=== PATIENT | male | born 1955 | race Caucasian/White ===

== ENCOUNTER 2017-07-03 19:21 | Emergency (ER) | payer OTHER ==
[2017-07-03] MEDS ORDERED: NS 1,000 ML IV ONE ×2 (19:48→20:19)
[2017-07-03] MEDS ORDERED: ONDANSETRON 4 MG/2 ML VIAL IVP ONE (19:48)
--- NOTE | 2017-07-03 19:51 | EDPHY ---
H & P Smoking Status: Never smoked Time Seen by Provider: 07/03/17 19:41 HPI/ROS: CHIEF COMPLAINT: Nausea vomiting diarrhea HISTORY OF PRESENT ILLNESS: Symptoms started 2 days ago. Multiple episodes of diarrhea which started 1st followed by at least 2 episodes of vomiting. Today still has nausea and inability to eat anything and some diarrhea with some crampy abdominal pain which radiates to his mid back. It was a little bit better with Advil but now it is still present. Pain is between his epigastrium and his umbilicus. Has had some previous abdominal surgery including umbilical hernia repair and appendectomy. He does drink daily alcohol. Symptoms moderate , currently feels dehydrated, symptoms worse with oral intake. No recent antibiotics or foreign travel. REVIEW OF SYSTEMS: Eye: no change in vision ENT: no sore throat Cardiac: no chest pain or syncope Pulmonary: no cough or SOB Abdomen: HPI Musculoskeletal: Radiates to the midback Skin: no rash Neuro: no headache Constitutional: no fever : no urinary symptoms A comprehensive 10 point review of systems is otherwise negative aside from elements mentioned in the history of present illness. PAST MEDICAL HISTORY: Includes mitral valve regurgitation, asthma, hypercholesterolemia, umbilical hernia repair, appendectomy. Social history: daily alcohol, General Appearance: Alert and conversant, cooperative. Eyes: No scleral icterus. ENT, Mouth: Dry mucous membranes Respiratory: Normal respiratory effort, breath sounds equal, lungs are clear to auscultation. Cardiovascular: Regular rate and rhythm. Gastrointestinal: Bowel sounds present, not distended, no rebound or guarding, no focal tenderness. Negative Monet sign. Neurological: Alert, face symmetric, normal motor and sensory in extremities. Skin: Warm and dry, no rashes. Musculoskeletal: No peripheral edema. Psychiatric: Not agitated. Emergency Department course/MDM: Zofran 4 mg IV and normal saline 1 L IV. Labs to include LFTs and lipase. Clinically dehydrated with tachycardia and heart rate of 110 on arrival. Not hypotensive. Not febrile. 2031: abdomen soft nontender, 500 mL fluid infused. Signed out to Dr. Angulo at 2099 with plan for discharge home if he feels better after IV hydration, if not then further workup as indicated. (Rosalino Jean) Constitutional: Initial Vital Signs Temperature (C) 37.5 C 07/03/17 19:26 Heart Rate 110 H 07/03/17 19:26 Respiratory Rate 18 07/03/17 19:26 Blood Pressure 120/71 07/03/17 19:26 O2 Sat (%) 94 07/03/17 19:26 O2 Delivery Mode Room Air Allergies/Adverse Reactions: amoxicillin Allergy (Verified 07/03/17 19:28) Hives Horse/Equine Containing Products Allergy (Verified 07/03/17 19:28) levofloxacin [From Levaquin] Allergy (Verified 07/03/17 19:28) Penicillins Allergy (Verified 07/03/17 19:28) Hives Noruwyb-Zmk-[id number] Reductase Inhibitor Allergy (Verified 07/03/17 19:28) Sulfa (Sulfonamide Antibiotics) Allergy (Verified 07/03/17 19:28) Hives Home Medications: Medication Instructions Recorded Albuterol [Proventil] 1 inh IH DAILY PRN 05/28/15 Alfuzosin HCl [Alfuzosin HCl ER] 10 mg PO BID 05/28/15 Aspirin [Aspirin 81mg (*)] 81 mg PO DAILY 05/28/15 Montelukast Sodium [Singulair 10 10 mg PO DAILY 05/28/15 mg (*)] [place]-3 Fatty Acids [Fish Oil 1000 1,000 mg PO DAILY 05/28/15 mg (*)] Omeprazole [Prilosec 20 mg] 20 mg PO DAILY 05/28/15 Acetaminophen [Tylenol 325mg (*)] 325 - 650 mg PO Q4 PRN #0 tab 06/09/15 Albuterol [Ventolin Hfa Inhaler] 1 puffs IH DAILY PRN #0 mdi 06/09/15 Aspirin [Aspirin 81mg (*)] 81 mg PO DAILY #0 tab 06/09/15 Famotidine [Pepcid 20 MG (*)] 20 mg PO BID #0 tab 06/09/15 Magnesium Hydroxide [Milk of 30 ml PO DAILY PRN #0 udcup 06/09/15 Magnesia (*)] Montelukast Sodium [Singulair 10 10 mg PO DAILY #0 tab 06/09/15 mg (*)] Ondansetron Odt [Zofran Odt 4 mg 4 mg PO Q4PRN PRN #10 tab 07/03/17 (*)] Medical Decision Making Differential Diagnosis: Differential diagnosis considered for abdominal pain including but not limited to appendicitis, cholecystitis, pancreatitis, gastritis and urinary tract infection. (Rosalino Jean) I took over care of this patient at 9:00 p.m.. Patient evaluated by myself at 9:35 p.m.. He is feeling much better at this time. I have reviewed his blood work with him and his . He is tolerating oral fluids. Repeat abdominal exam is soft, nontender nondistended. I feel he is safe for discharge and he feels comfortable going home going home with his . I will prescribe him Zofran for nausea. Follow-up and return to emergency department precautions discussed with him. All of his questions were answered. He was discharged in good condition with his . (Kerrie Angulo) - Data Points Laboratory Results: Laboratory Results 07/03/17 19:40 07/03/17 19:40 07/03/17 07/03/17 19:40 19:40 WBC 8.18 10^3/uL 10^3/uL (3.80-9.50) RBC 5.28 10^6/uL 10^6/uL (4.40-6.38) Hgb 17.9 g/dL H g/dL (13.7-17.5) Hct 49.7 % % (40.0-51.0) MCV 94.1 fL fL (81.5-99.8) MCH 33.9 pg pg (27.9-34.1) MCHC 36.0 g/dL g/dL (32.4-36.7) RDW 12.0 % % (11.5-15.2) Plt Count 167 10^3/uL 10^3/uL (150-400) MPV 9.9 fL fL (8.7-11.7) Neut % (Auto) 90.2 % H % (39.3-74.2) Lymph % (Auto) 3.7 % L % (15.0-45.0) [place] % (Auto) 5.5 % % (4.5-13.0) Eos % (Auto) 0.0 % L % (0.6-7.6) Baso % (Auto) 0.2 % L % (0.3-1.7) Nucleat RBC Rel Count 0.0 % % (0.0-0.2) Absolute Neuts (auto) 7.38 10^3/uL H 10^3/uL (1.70-6.50) Absolute Lymphs (auto) 0.30 10^3/uL L 10^3/uL (1.00-3.00) Absolute Monos (auto) 0.45 10^3/uL 10^3/uL (0.30-0.80) Absolute Eos (auto) 0.00 10^3/uL L 10^3/uL (0.03-0.40) Absolute Basos (auto) 0.02 10^3/uL 10^3/uL (0.02-0.10) Absolute Nucleated RBC 0.00 10^3/uL 10^3/uL (0-0.01) Immature Gran % 0.4 % % (0.0-1.1) Immature Gran # 0.03 10^3/uL 10^3/uL (0.00-0.10) Sodium 140 mEq/L mEq/L (135-145) Potassium 4.0 mEq/L mEq/L (3.5-5.2) Chloride 102 mEq/L mEq/L (97-110) Carbon Dioxide 24 mEq/l mEq/l (22-31) Anion Gap 14 mEq/L mEq/L (8-16) BUN 27 mg/dL H mg/dL (7-23) Creatinine 1.0 mg/dL mg/dL (0.7-1.3) Estimated GFR > 60 Glucose 110 mg/dL H mg/dL (70-100) Calcium 9.0 mg/dL mg/dL (8.5-10.4) Total Bilirubin 0.9 mg/dL mg/dL (0.1-1.4) Conjugated Bilirubin 0.4 mg/dL mg/dL (0.0-0.5) Unconjugated Bilirubin 0.5 mg/dL mg/dL (0.0-1.1) AST 41 IU/L IU/L (17-59) ALT 47 IU/L IU/L (21-72) Alkaline Phosphatase 86 IU/L IU/L (38-126) Total Protein 7.3 g/dL g/dL (6.3-8.2) Albumin 4.4 g/dL g/dL (3.5-5.0) Lipase 40 IU/L IU/L (23-300) Medications Given: Discontinued Medications Sodium Chloride (Ns) 1,000 mls @ 0 mls/hr IV EDNOW ONE; Wide Open PRN Reason: Protocol Stop: 07/03/17 19:49 Last Admin: 07/03/17 19:59 Dose: 1,000 mls Sodium Chloride (Ns) 1,000 mls @ 0 mls/hr IV EDNOW ONE; Wide Open PRN Reason: Protocol Stop: 07/03/17 20:20 Last Admin: 07/03/17 20:23 Dose: 1,000 mls Ondansetron HCl (Zofran) 4 mg IVP EDNOW ONE Stop: 07/03/17 19:49 Last Admin: 07/03/17 20:00 Dose: 4 mg Departure - Departure Disposition: Home, Routine, Self-Care Clinical Impression: Dehydration, Vomiting and diarrhea Condition: Good Instructions: Ondansetron (By mouth), Dehydration (ED) Additional Instructions: Read and follow provided instructions. Follow-up with your primary care physician in 1-2 days for re-evaluation. Take medication as prescribed for nausea. Keep well hydrated. A good fluid to drink is Gatorade mixed with water in a 1- 1 dilution over ice. Advance diet slowly and as tolerated. Return to the emergency department for worsening symptoms, worsening abdominal pain, vomiting and inability to keep fluids down despite medications, bloody stool or other serious concerns. Referrals: Benji Wray MD [Primary Care Provider] - As per Instructions Prescriptions: Ondansetron Odt [Zofran Odt 4 mg (*)] 4 mg PO Q4PRN PRN #10 tab PRN Reason: For Nausea & Vomiting
[2017-07-03 20:01] LABS: PLATELET COUNT 167 10^3/uL (150-400)
[2017-07-03 21:32] VITALS: BP 107/63
[2017-07-03] MEDS ORDERED: ONDANSETRON 4MG PREPACK#2 BTL TAKEHOME ONE (21:44)
== END 2017-07-03 21:55 | disposition home or self-care (01) ==
DX: R19.7 Diarrhea, unspecified (principal); R11.10 Vomiting, unspecified; E86.0 Dehydration; E86.9 Volume depletion, unspecified; J45.909 Unspecified asthma, uncomplicated; Z79.82 Long term (current) use of aspirin
CPT/HCPCS: 96374; J2405

== ENCOUNTER → 2018-03-14 | Outpatient (CLI) | payer OTHER | LOC: FIMAGING 11:25 | PROVIDERS: ATTEND Internal Medicine | DX: M54.5 Low back pain (principal); M51.37 Other intervertebral disc degeneration, lumbosacral region ==

== ENCOUNTER 2018-03-18 16:08 | Emergency (ER) | payer OTHER ==
[2018-03-18] MEDS ORDERED: IPRATROPIUM/ALBUTEROL 3 ML DEYVIAL IH ONE (16:44)
--- NOTE | 2018-03-18 16:49 | EDPHY ---
H & P Stated Complaint: URI/flu sxs x 3 days; exacerbating his asthma Time Seen by Provider: 03/18/18 16:38 - Personal History Current Tetanus Diphtheria and Acellular Pertussis (TDAP): Yes - Medical/Surgical History Hx Asthma: Yes Hx Chronic Respiratory Disease: No Hx Diabetes: No Hx Cardiac Disease: No Hx Renal Disease: No Hx Cirrhosis: No Hx Alcoholism: No Hx HIV/AIDS: No Hx Splenectomy or Spleen Trauma: No Other PMH: heart murmur, mitral valve regurgitation, asthma, high cholesterol, rt shoulder surgery,umbilical hernia sept 15, carpal tunnel release lt, lt knee scope, appy, enlarged prostate - Social History Smoking Status: Never smoked Constitutional: Initial Vital Signs Temperature (C) 37 C 03/18/18 16:25 Heart Rate 68 03/18/18 16:25 Respiratory Rate 18 03/18/18 16:25 Blood Pressure 104/71 03/18/18 16:25 O2 Sat (%) 92 03/18/18 16:25 O2 Delivery Mode Room Air Allergies/Adverse Reactions: amoxicillin Allergy (Verified 03/18/18 16:23) Hives Horse/Equine Containing Products Allergy (Verified 03/18/18 16:23) levofloxacin [From Levaquin] Allergy (Verified 03/18/18 16:23) Penicillins Allergy (Verified 03/18/18 16:23) Hives Hxobppv-Tcx-Hcf Reductase Inhibitor Allergy (Verified 03/18/18 16:23) Sulfa (Sulfonamide Antibiotics) Allergy (Verified 03/18/18 16:23) Hives Home Medications: Medication Instructions Recorded Alfuzosin HCl [Alfuzosin HCl ER] 10 mg PO BID 05/28/15 Aspirin [Aspirin 81mg (*)] 81 mg PO DAILY 05/28/15 Montelukast Sodium [Singulair 10 10 mg PO DAILY 05/28/15 mg (*)] Omeprazole [Prilosec 20 mg] 20 mg PO DAILY 05/28/15 Albuterol Hfa Anes Only [Proair 2 puffs IH QID 03/18/18 Hfa Icu (*)] Azithromycin [Zithromax] 250 mg PO DAILY #6 tab 03/18/18 Ranitidine HCl [Zantac] 150 mg PO 03/18/18 predniSONE 40 mg PO DAILY #10 tab 03/18/18 Medical Decision Making - Diagnostics Imaging Results: Imaging Impressions Chest X-Ray 03/18/18 16:44 Impression: Chronic versus recurrent airways disease with a possible small consolidation in the retrocardiac region. Recommend follow-up x-ray after appropriate treatment to assess for clearing. ED Course/Re-evaluation: CHIEF COMPLAINT: Upper respiratory infection worsening his asthma HISTORY OF PRESENT ILLNESS: 62-year-old gentleman who has a history of asthma. He uses albuterol puffer as needed. He is had an upper respiratory infection that moved into his chest over the last couple of days. He denies any fevers or chills. He is coughing. He is wheezing. And he believes this upper respiratory infection has exacerbated his asthma. He has good room air oxygen saturations. He denies any significant shortness of breath just starting a cough a lot. He has had the flu vaccine this year. REVIEW OF SYSTEMS: A comprehensive 10 system review of systems is otherwise negative aside from elements mentioned in the history of present illness and medical decision making. PHYSICAL EXAM: HR, BP, O2 Sat, RR. Temp noted General Appearance: Alert, well hydrated, appropriate, and non-toxic appearing. Head: Atraumatic without scalp tenderness or obvious injury Eyes: Pupils equal, round, reactive to light and accommodation, EOMI, no trauma , no injection. Ears: Clear bilaterally, no perforation, normal landmarks Nose: Atraumatic, no rhinorrhea, clear. Throat: There is no erythema or exudates, no lesions, normal tonsils, mucus membranes moist. Neck: Supple, 2+ carotid upstroke, nontender, no lymphadenopathy. Respiratory: No retractions, no distress, significant end-expiratory wheezes, and no accessory muscle use. Coarse rhonchi in all lung [place] with decrease in the right base. Cardiovascular: Regular rate and rhythm, no murmurs, rubs, or gallops. Bilateral carotid, radial, dorsalis pedis, and posterior tibial pulses intact. Good capillary refill all extremities. Gastrointestinal: Abdomen is soft, nontender, non-distended, no masses, no rebound, no guarding, no peritoneal signs. Musculoskeletal: Normal active ROM of all extremities, atraumatic. Neurological: Alert, appropriate, and interactive. The patient has normal DTRs and non-focal cranial nerves, motor, sensory, and cerebellar exam. Skin: No rashes, good turgor, no nodules on palpation. Past medical history: Hypertension, asthma, hypercholesterolemia Past surgical history: Noncontributory Family history: Noncontributory Social history: , employed, does not abuse tobacco drugs or alcohol DIAGNOSTICS/PROCEDURES/CRITICAL CARE TIME: Study: PA and Lateral Chest X-ray Indication: Cough, upper respiratory infection, asthma Results: After viewing the images myself on the PACS system. My interpretation of the images is: no acute process. The radiologist interpretation is pending at the time of this dictation. DIFFERENTIAL DIAGNOSIS: The differential diagnosis for the patient's shortness of breath included but was not limited to pneumonia, myocardial infarction, acute mountain sickness, high altitude pulmonary edema, congestive heart failure , and pulmonary embolus, asthma exacerbation. MEDICAL DECISION MAKING: This patient has longstanding asthma with certain triggers causing exacerbation. He has an exacerbation from an upper respiratory infection over the last several days. The infection is now causing more of a cough for him. He denies any significant fevers or chills. He is not hypoxemic. He is not meeting criteria for severe sepsis. 17:00 - The x-ray does not indicate infiltrate. The influenza swab is negative. I will treat this patient with prednisone, Zithromax, and he will follow up with his primary care physician tomorrow the next day. He does have an albuterol inhaler which he will continue to use. He got significant relief from the duo nebulizer treatment. - Data Points Laboratory Results: 03/18/18 17:08 Nasal Influenza A PCR NEGATIVE FOR FLU A (NEGATIVE) Nasal Influenza B PCR NEGATIVE FOR FLU B (NEGATIVE) Medications Given: Discontinued Medications Albuterol/Ipratropium (Duoneb) 3 ml EDNOW ONE Stop: 03/18/18 16:45 Last Admin: 03/18/18 17:08 Dose: 3 ml Departure - Departure Disposition: Home, Routine, Self-Care Clinical Impression: Acute bronchitis Qualifiers: Bronchitis organism: other organism Qualified Code(s): J20.8 - Acute bronchitis due to other specified organisms Exacerbation of asthma Qualifiers: Asthma severity: moderate Asthma persistence: persistent Qualified Code(s): J45.41 - Moderate persistent asthma with (acute) exacerbation Condition: Good Instructions: Bronchospasm (ED), Acute Bronchitis (ED) Referrals: Benji Wray MD [Primary Care Provider] - As per Instructions Prescriptions: Azithromycin [Zithromax] 250 mg PO DAILY #6 tab predniSONE 40 mg PO DAILY #10 tab
[2018-03-18] MEDS ORDERED: AZITHROMYCIN 250 MG TAB PO ONE (17:54)
[2018-03-18] MEDS ORDERED: predniSONE 20 MG TAB PO ONE (17:54)
[2018-03-18 18:10] VITALS: BP 110/67
[2018-03-18] MEDS ORDERED: ALBUTEROL INH PREPACK MDI TAKEHOME ONE (18:11)
== END 2018-03-18 18:19 | disposition home or self-care (01) ==
DX: J20.8 Acute bronchitis due to other specified organisms (principal); J45.41 Moderate persistent asthma with (acute) exacerbation
CPT/HCPCS: J7512

== ENCOUNTER → 2018-07-16 | Outpatient (CLI) | payer OTHER | LOC: FIMAGING 13:50 | PROVIDERS: ATTEND Internal Medicine | DX: R05 Cough (principal); Z96.611 Presence of right artificial shoulder joint ==